=== PATIENT | female | born 1990 | race Caucasian/White ===

== ENCOUNTER 2020-10-26 19:43 | Emergency (ER) | payer OTHER ==
[~2020-10-26] VITALS: Ht 170.2 cm; Wt 113.0 kg
[2020-10-26] MEDS ORDERED: ACETAMINOPHEN 325MG TABLET PO ONE (20:45)
[2020-10-26 21:00] VITALS: BP 126/78
== END 2020-10-26 22:28 | disposition home or self-care (01) ==
LOC: ER 19:43
DX: M25.561 Pain in right knee (principal); Z88.0 Allergy status to penicillin; Z98.890 Other specified postprocedural states
CPT/HCPCS: 73562; 81025; 99283

== ENCOUNTER 2021-03-28 16:47 | Emergency (ER) | payer OTHER ==
[~2021-03-28] VITALS: Ht 170.2 cm; Wt 125.0 kg
[2021-03-28 18:14] LABS: BASOPHILS % 0.6 % (0.0-2.0); EOSINOPHILS % 0.9 % (0.0-5.0); HEMATOCRIT. 37.9 % (36.0-48.0); HEMOGLOBIN. 12.4 g/dL (12.0-16.0); LYMPHOCYTES % 15.1 % (20.0-50.0); MEAN CORPUSCULAR VOLUME 73.2 fL (81.0-99.0); MEAN PLATELET VOLUME 7.3 fl (7.4-10.4); MONOCYTES % 4.9 % (2.0-8.0); NEUTROPHILS % 78.5 % (40.0-76.0); PLATELET 408 x1000/uL (130-400); RED BLOOD CELL COUNT 5.17 mill/uL (4.2-5.4); RED CELL DISTRIBUTION WIDTH 16.1 % (11.6-14.6)
[2021-03-28 18:22] LABS: CHLORIDE 110 mEq/L (98-107)
[2021-03-28 18:27] VITALS: BP 143/93
== END 2021-03-28 19:14 | disposition home or self-care (01) ==
LOC: ER 16:47
DX: R00.2 Palpitations (principal); R03.0 Elevated blood-pressure reading, without diagnosis of hypertension; Z86.16 Personal history of COVID-19
CPT/HCPCS: 36415; 71045; 80053; 85025; 85379; 99284

== ENCOUNTER 2021-06-25 10:34 | Emergency (ER) | payer OTHER ==
[~2021-06-25] VITALS: Ht 172.7 cm; Wt 125.0 kg
[2021-06-25 11:11] VITALS: BP 143/65
[2021-06-25 11:48] LABS: BASOPHILS % 0.8 % (0.0-2.0); EOSINOPHILS % 1.1 % (0.0-5.0); HEMATOCRIT. 38.3 % (36.0-48.0); HEMOGLOBIN. 12.4 g/dL (12.0-16.0); LYMPHOCYTES % 18.2 % (20.0-50.0); MEAN CORPUSCULAR HEMOGLOBIN 24.7 pg (28.0-32.0); MEAN CORPUSCULAR VOLUME 76.3 fL (81.0-99.0); MEAN PLATELET VOLUME 7.2 fl (7.4-10.4); MONOCYTES % 3.9 % (2.0-8.0); PLATELET 406 x1000/uL (130-400); RED BLOOD CELL COUNT 5.01 mill/uL (4.2-5.4)
[2021-06-25 11:55] LABS: CHLORIDE 108 mEq/L (98-107)
[2021-06-25 12:01] LABS: HCG SCREEN NEGATIVE
[2021-06-25 12:20] LABS: CLARITY URINE CLEAR (CLEAR); COLOR URINE YELLOW (YELLOW); KETONES URINE TRACE (NEGATIVE); LEUKOCYTE ESTERASE URINE 2+ (NEGATIVE); NITRITE URINE NEGATIVE (NEGATIVE); OCCULT BLOOD URINE NEGATIVE (NEGATIVE); PH URINE 5.5 (4.5-8.0); PROTEIN URINE TRACE (NEGATIVE); SPECIFIC GRAVITY URINE 1.023 (1.005-1.030)
[2021-06-25] MEDS ORDERED: ONDANSETRON HCL 4MG/2ML INJ IV STA (12:24)
[2021-06-25] MEDS ORDERED: MORPHINE SULFATE 4 MG/ML CPJ (NOT FOR IM USE) IV STA (12:24)
[2021-06-25] MEDS ORDERED: SODIUM CHLORIDE 0.9% 1,000 ML IV ONE (12:30)
[2021-06-25] MEDS ORDERED: KETOROLAC 60MG/2ML VIAL IM ONE (12:45)
[2021-06-25] MEDS ORDERED: IBUP-2030 MT (13:37)
[2021-06-25] MEDS ORDERED: CIPR-263 MT (13:37)
== END 2021-06-25 13:50 | disposition home or self-care (01) ==
LOC: ER 10:34
DX: N12 Tubulo-interstitial nephritis, not specified as acute or chronic (principal); Z88.0 Allergy status to penicillin; Z98.890 Other specified postprocedural states
CPT/HCPCS: 36415; 76705; 80053; 81003; 83690; 84703; 85025; 87086; 96372; 99284; J1885; J7030

== ENCOUNTER 2021-06-26 10:53 | Emergency (ER) | payer OTHER ==
[~2021-06-26] VITALS: Ht 170.2 cm; Wt 120.0 kg
[~2021-06-26 10:53] MED LIST: CIPR-263 MT; IBUP-2030 MT
[2021-06-26 11:05] VITALS: BP 133/87
[2021-06-26] MEDS ORDERED: KETOROLAC 60MG/2ML VIAL IM ONE (11:15)
== END 2021-06-26 13:31 | disposition left against medical advice (07) ==
LOC: ER 11:57
DX: N39.0 Urinary tract infection, site not specified (principal)
CPT/HCPCS: 99281

== ENCOUNTER 2021-07-06 22:54 | Emergency (ER) | payer OTHER ==
[~2021-07-06] VITALS: Ht 170.2 cm; Wt 122.0 kg
[2021-07-06] MEDS ORDERED: KETOROLAC 30MG/ML VIAL IV NR (23:21)
[2021-07-06] MEDS ORDERED: ONDANSETRON HCL 4MG/2ML INJ IV NR (23:21)
[2021-07-06] MEDS ORDERED: SODIUM CHLORIDE 0.9% 1,000 ML IV ONE (23:30)
[2021-07-06 23:53] LABS: BASOPHILS % 0.9 % (0.0-2.0); EOSINOPHILS % 1.6 % (0.0-5.0); HEMATOCRIT. 36.9 % (36.0-48.0); LYMPHOCYTES % 24.5 % (20.0-50.0); MEAN CORPUSCULAR HEMOGLOBIN 24.6 pg (28.0-32.0); MEAN CORPUSCULAR VOLUME 75.6 fL (81.0-99.0); PLATELET 366 x1000/uL (130-400); RED BLOOD CELL COUNT 4.89 mill/uL (4.2-5.4); RED CELL DISTRIBUTION WIDTH 15.4 % (11.6-14.6)
[2021-07-06 23:58] LABS: CHLORIDE 110 mEq/L (98-107)
[2021-07-07 01:22] LABS: CLARITY URINE CLEAR (CLEAR); COLOR URINE YELLOW (YELLOW); KETONES URINE TRACE (NEGATIVE); LEUKOCYTE ESTERASE URINE NEGATIVE (NEGATIVE); NITRITE URINE NEGATIVE (NEGATIVE); OCCULT BLOOD URINE TRACE (NEGATIVE); PROTEIN URINE NEGATIVE (NEGATIVE); SPECIFIC GRAVITY URINE 1.018 (1.005-1.030); UROBILINOGEN URINE 0.2 E.U./dL (0.2-1.0)
[2021-07-07 04:25] VITALS: BP 138/82
== END 2021-07-07 04:30 | disposition home or self-care (01) ==
LOC: ER 22:54
DX: N39.0 Urinary tract infection, site not specified (principal); R10.9 Unspecified abdominal pain; Z87.440 Personal history of urinary (tract) infections; Z88.0 Allergy status to penicillin
CPT/HCPCS: 36415; 74176; 76770; 80053; 81003; 81025; 85025; 87086; 87491; 87591; 96361; 96374; 96375; 99285; J1885; J2405

== ENCOUNTER 2021-09-07 15:43 | Emergency (ER) | payer OTHER ==
[~2021-09-07] VITALS: Ht 170.2 cm; Wt 121.0 kg
[2021-09-07] MEDS ORDERED: IBUPROFEN 400MG TABLET PO ONE (17:15)
[2021-09-07 20:55] VITALS: BP 122/64
== END 2021-09-07 20:55 ==
LOC: ER 15:43
DX: N64.4 Mastodynia (principal); N60.02 Solitary cyst of left breast
CPT/HCPCS: 76642; 81025; 99284

== ENCOUNTER 2023-03-05 09:15 | Emergency (ER) | payer SELFPAY ==
[~2023-03-05] VITALS: Ht 170.2 cm; Wt 105.0 kg
[2023-03-05 09:41] VITALS: O2SAT 97
[2023-03-05] MEDS ORDERED: HYDR-4001 MT (09:53)
[2023-03-05] MEDS ORDERED: ACET500C47 PO ×5 (11:07→11:11)
[2023-03-05 12:06] VITALS: BP 147/100; PULSE 78; RESP 18; TEMP 98.2
== END 2023-03-05 12:09 | disposition home or self-care (01) ==
LOC: ER 09:15
DX: R51.9 Headache, unspecified (principal); G93.2 Benign intracranial hypertension
CPT/HCPCS: 99283